=== PATIENT | female | born 1985 | race Caucasian/White ===

== ENCOUNTER 2023-01-27 16:15 | Inpatient (IN) | payer OTHER ==
[~2023-01-27] VITALS: Ht 121.9 cm; Wt 59.9 kg
--- NOTE | 2023-01-27 17:37 | NUR ---
SE RECIBE PACIENTE EN AREA DE ICU-2 ESTUPUROSA EN COMPANIA DE FAMILIAR QUIEN REFIERE INGIRIO FRAN PERCOCET. SE UBICA EN CAMA #3 DE UNIDAD DE DONDE SE CONECTA A MONITOR CARDIACO Y OXIMETRIA. SE COLOCA CANULA NASALA A 3LT/MIN. SE CANALIZA EN BRAZOS LT CON ANGIO #18 MEDIANTE MEDIDAS ASEPTICAS, AREA QUEDA JU DE EDEMA O ERITEMA. SE ADMINISTRA 0.4 MG DE NARCAN THAI ORDEN MEDICA. PTE PRESENTABA AL LLEGAR RESPUESTA DE ESTIMULO VERBAL Y DE DOLOR. ABDOMEN DEPRESIBLE AL TACTO Y PERISTALSIS PRESENTE. SE OBSERVA POR CAMBIOS. 1700 SE COLECTAN MUESTRAS DE LABORATORIO MEDIANTE MEDIDAS ASEPTICAS DE BRAZO DERECHO; AREA QUEDA JU DE EDEMA Y ERITEMA
[2023-01-30] MEDS ORDERED: ABANEU-SL TABL1 EACH SL (10:07)
[2023-01-30] MEDS ORDERED: FUSION PLUS CA1 EACH PO (10:07)
== END 2023-01-30 10:57 | disposition home or self-care (01) | DRG 812 ==
LOC: ER 16:15 → MEDI 20:20
PROVIDERS: General Practice; ADMIT Internal Medicine; ATTEND Internal Medicine
PROC: BU4CZZZ Ultrasonography of Uterus and Ovaries (ICD-10-PCS; 2023-01-27)
PROC: 30233N1 Transfusion of Nonautologous Red Blood Cells into Peripheral Vein, Percutaneous Approach (ICD-10-PCS; principal; 2023-01-28)
PROC: 4A12X4Z Monitoring of Cardiac Electrical Activity, External Approach (ICD-10-PCS; 2023-01-28)
PROC: 3E0F7SF Introduction of Other Gas into Respiratory Tract, Via Natural or Artificial Opening (ICD-10-PCS; 2023-01-28)
PROC: B020ZZZ Computerized Tomography (CT Scan) of Brain (ICD-10-PCS; 2023-01-29)
DX: D64.89 Other specified anemias (principal); N93.8 Other specified abnormal uterine and vaginal bleeding; D25.1 Intramural leiomyoma of uterus; R55 Syncope and collapse; G93.2 Benign intracranial hypertension; T40.2X5A Adverse effect of other opioids, initial encounter

== ENCOUNTER 2023-12-22 18:41 | Emergency (ER) | payer OTHER ==
[~2023-12-22] VITALS: Ht 152.4 cm; Wt 62.6 kg
[~2023-12-22 18:41] MED LIST: ABANEU-SL TABL1 EACH SL; FUSION PLUS CA1 EACH PO
[2023-12-22] MEDS ORDERED: ACETAMINOPHEN 500 MG GEL..CAP PO ONE (20:00)
[2023-12-22 20:29] LABS: HEMATOCRIT 27.7 % (36.0-45.00); MEAN CORPUSCULAR HGB CONC 32.4 g/dl (32.0-36.0); PLATELET COUNT 430 K/uL (150-450); RED CELL DISTRIBUTION WIDTH 19.4 % (11.5-14.5)
[2023-12-22 20:30] LABS: MEAN CELL VOLUME 67.9 fL (80.00-100.00)
[2023-12-22 20:31] LABS: RED BLOOD COUNT 4.08 M/uL (4.00-6.00)
[2023-12-22 20:48] LABS: CALCIUM 9.3 mg/dL (8.5-10.1); CREATININE SERUM 0.49 mg/dL (0.55-1.02); GFR 139.87; POTASSIUM 3.73 mEq/L (3.5-5.1)
[2023-12-22 20:53] LABS: INR 0.98; PARTIAL THROMBOPLASTIN TIME < 20.0 SECONDS (22.0-34.0); PROTHROMBIN TIME 10.3 SECONDS (9.0-11.5)
== END 2023-12-22 23:45 | disposition home or self-care (01) ==
LOC: ER 18:42
PROVIDERS: Emergency Medicine
DX: D64.9 Anemia, unspecified (principal)

== ENCOUNTER 2024-01-30 12:30 | Inpatient (IN) | payer OTHER ==
[~2024-01-30] VITALS: Ht 152.4 cm; Wt 59.9 kg
[2024-01-30 15:08] VITALS: BP 103/70
[2024-01-30 15:09] VITALS: BP 111/73
[2024-02-02] MEDS ORDERED: CEFOXITIN SODIUM 2,000 MG VIAL IV ONE ×2 (10:20→15:53)
[2024-02-02] MEDS ORDERED: POVIDONE-IODINE 118 ML BOTT TOP ONE (11:13)
[2024-02-02] MEDS ORDERED: METRONIDAZOLE/SODIUM CHLORIDE 500 MG/100 ML PIGGYBACK IV ONE ×2 (12:08→12:15)
[2024-02-02] MEDS ORDERED: THROMBIN,HU/FIBRINOGEN/CALCIUM 10 ML SYRINGE TOP ONE (12:16)
[2024-02-02 13:07] LABS: RH NEGATIVE
[2024-02-02] MEDS ORDERED: RINGERS SOLUTION,LACTATED 1,000 ML IV SCH (13:15)
[2024-02-02] MEDS ORDERED: MORPHINE SULFATE 4 MG/ML CARTRIDGE IV PRN (13:15)
[2024-02-02] MEDS ORDERED: MORPHINE SULFATE 4 MG/ML VIAL IV ONE ×2 (14:00→15:30)
[2024-02-02] MEDS ORDERED: KETOROLAC TROMETHAMINE 30 MG VIAL IV STA (14:34)
[2024-02-02] MEDS ORDERED: KETOROLAC TROMETHAMINE 30 MG VIAL IV ONE (14:45)
[2024-02-02 16:46] LABS: HEMATOCRIT 28.1 % (36.0-45.00); HEMOGLOBIN 9.2 g/dL (12.0-15.00); MEAN CELL VOLUME 74.1 fL (80.00-100.00); MEAN CORPUSCULAR HEMOGLOBIN 24.4 pg (27.00-32.0); MEAN CORPUSCULAR HGB CONC 32.9 g/dl (32.0-36.0); PLATELET COUNT 210 K/uL (150-450); RED BLOOD COUNT 3.79 M/uL (4.00-6.00)
[2024-02-02] MEDS ORDERED: CEFOXITIN SODIUM 2,000 MG VIAL IV SCH (17:00)
[2024-02-02] MEDS ORDERED: KETOROLAC TROMETHAMINE 30 MG VIAL IV SCH (17:00)
[2024-02-02 17:12] VITALS: BP 111/73
[2024-02-02 17:24] LABS: CALCIUM 8.2 mg/dL (8.5-10.1); CREATININE SERUM 0.52 mg/dL (0.55-1.02); GFR 130.6; POTASSIUM 3.93 mEq/L (3.5-5.1)
[2024-02-02] MEDS ORDERED: FAMOtidine 20 MG TABLET PO SCH (21:00)
[2024-02-02] MEDS ORDERED: ALPRAzolam 0.25 MG TABLET PO SCH (22:45)
[2024-02-03] VITALS: BP 99/64
[2024-02-03 04:42] LABS: HEMATOCRIT 27.5 % (36.0-45.00); MEAN CELL VOLUME 72.6 fL (80.00-100.00); MEAN CORPUSCULAR HGB CONC 33.5 g/dl (32.0-36.0); PLATELET COUNT 194 K/uL (150-450); RED BLOOD COUNT 3.79 M/uL (4.00-6.00)
[2024-02-03 05:02] LABS: HEMOGLOBIN 9.2 g/dL (12.0-15.00); MEAN CORPUSCULAR HEMOGLOBIN 24.2 pg (27.00-32.0); RED CELL DISTRIBUTION WIDTH 27.7 % (11.5-14.5)
[2024-02-03 05:03] LABS: CALCIUM 7.9 mg/dL (8.5-10.1); GFR 158.37; POTASSIUM 3.92 mEq/L (3.5-5.1)
[2024-02-03 05:04] LABS: CREATININE SERUM 0.44 mg/dL (0.55-1.02)
[2024-02-03] MEDS ORDERED: OxyCODONE HCL/APAP UD (PERCOCET) PO PRN (06:30)
[2024-02-03 08:48] VITALS: BP 89/67
[2024-02-03] MEDS ORDERED: ENOXAPARIN SODIUM 40 MG/0.4 ML SYRINGE SUBCUTANEO SCH (09:00)
[2024-02-03 17:37] VITALS: BP 112/75
[2024-02-03 23:55] VITALS: BP 95/65
[2024-02-04 09:18] VITALS: BP 118/84
== END 2024-02-04 12:11 | disposition home or self-care (01) | DRG 743 ==
LOC: O/R 02-02 06:25 → OB/GYN 02-02 07:00
PROVIDERS: Anesthesiology; Obstetrics & Gynecology; ADMIT Obstetrics & Gynecology Gynecologic Oncology; ATTEND Obstetrics & Gynecology Gynecologic Oncology
PROC: 0UT10ZZ Resection of Left Ovary, Open Approach (ICD-10-PCS; 2024-02-02)
PROC: 0DNW0ZZ Release Peritoneum, Open Approach (ICD-10-PCS; 2024-02-02)
PROC: 0UT90ZZ Resection of Uterus, Open Approach (ICD-10-PCS; principal; 2024-02-02 07:00)
PROC: 0UT60ZZ Resection of Left Fallopian Tube, Open Approach (ICD-10-PCS; 2024-02-02 07:00)
DX: D25.1 Intramural leiomyoma of uterus (principal); D25.2 Subserosal leiomyoma of uterus; D25.0 Submucous leiomyoma of uterus; Z20.822 Contact with and (suspected) exposure to COVID-19; G93.2 Benign intracranial hypertension; N83.02 Follicular cyst of left ovary; N80.102 Endometriosis of left ovary, unspecified depth